=== PATIENT | female | born 1970 | race Caucasian/White ===

== ENCOUNTER 2017-08-04 18:20 | Emergency (ER) | payer SELFPAY ==
[~2017-08-04] VITALS: Ht 172.7 cm; Wt 70.9 kg
[2017-08-04 18:26] VITALS: BP 135/78; Ht 172.7 cm; Wt 70.9 kg
== END 2017-08-04 20:06 | disposition left against medical advice (07) ==
LOC: ED 18:20
DX: Z53.21 Procedure and treatment not carried out due to patient leaving prior to being seen by health care provider (principal)